=== PATIENT | female | born 1940 ===

== ENCOUNTER → 2018-05-24 | Outpatient (CLI) | payer MEDICARE, OTHER ==
[~2018-05-24] MED LIST: Armour Thyroid15 MG PO; CEPH500 PO; HYDACE5 PO; Naprosyn500 MG PO; SULTRIDS PO; [UNRECOGNIZED DRUG - OTHER]
== END | disposition home or self-care (01) ==
LOC: LAB 12:50 → LAB SHORT 12:50
DX: N39.0 Urinary tract infection, site not specified (principal)
CPT/HCPCS: 87086

== ENCOUNTER 2018-05-26 11:46 | Emergency (ER) | payer MEDICARE, OTHER ==
[~2018-05-26] VITALS: Ht 160 cm; Wt 70.6 kg
[~2018-05-26 11:46] MED LIST changes: -CEPH500 PO; -Naprosyn500 MG PO
[2018-05-26 12:21] LABS: BASOPHILS ABSOLUTE AUTO 0.03 K/mm3 (0.00-0.23); BASOPHILS PERCENT AUTO 0 % (0-2); EOSINOPHILS ABSOLUTE AUTO 0.01 K/mm3 (0.00-0.68); EOSINOPHILS PERCENT AUTO 0 % (0-6); Hematocrit 39.6 % (33.0-51.0); Hemoglobin 12.8 g/dL (11.5-16.0); IMMATURE GRAN ABSOLUTE AUTO 0.03 K/mm3 (0.00-0.10); IMMATURE GRAN PERCENT AUTO 0 % (0-1); LYMPHOCYTES ABSOLUTE AUTO 1.33 K/mm3 (0.84-5.20); LYMPHOCYTES PERCENT AUTO 14 % (21-46); MONOCYTES ABSOLUTE AUTO 1.03 K/mm3 (0.16-1.47); MONOCYTES PERCENT AUTO 11 % (4-13); Mean Corpuscular HGB 31.3 pg (26.0-34.0); Mean Corpuscular HGB Conc 32.3 g/dL (31.5-36.5); Mean Corpuscular Volume 97 fL (80-100); Mean Platelet Volume 9.3 fL (9.1-12.4); NEUTROPHILS ABSOLUTE AUTO 7.32 K/mm3 (1.96-9.15); NEUTROPHILS PERCENT AUTO 75 % (41-73); Platelet Count 256 K/mm3 (150-400); RDW Coefficient Variation 12.6 % (11.7-14.2); RDW Standard Deviation 44.9 fL (35.1-46.3); Red Blood Cell Count 4.09 M/mm3 (3.80-5.20); White Blood Cell Count 9.75 K/mm3 (4.00-11.30)
[2018-05-26 12:35] LABS: International Normalized Ratio 1.09; Prothrombin Time Results 11.2 Sec (9.7-11.5)
[2018-05-26 12:43] LABS: Troponin I <0.015 ng/mL (0.000-0.040)
[2018-05-26 12:45] LABS: Alanine Aminotransfer (ALT/SGP 19 U/L (12-78); Albumin, Blood 3.5 g/dL (3.4-5.0); Albumin/Globulin Ratio 0.7 (0.8-1.8); Alk Phos 100 U/L (50-136); Anion Gap 9 mmol/L (6-16); Aspartate Aminotrans (AST/SGOT 20 U/L (12-37); Bilirubin, Total 0.6 mg/dL (0.1-1.0); Blood Urea Nitrogen 16 mg/dL (8-24); CO2, Blood 27 mmol/L (21-32); Calcium, Blood 8.8 mg/dL (8.5-10.1); Chloride, Blood 102 mmol/L (98-108); Creatinine, Blood 0.59 mg/dL (0.40-1.00); Globulin, Blood 4.9 g/dL (2.2-4.0); Glomerular Filtration Rate >60 (60-); Glucose, Blood 90 mg/dL (70-99); Potassium, Blood 3.7 mmol/L (3.5-5.5); Sodium, Blood 138 mmol/L (136-145); Total Protein, Blood 8.4 g/dL (6.4-8.2)
[2018-05-26 13:31] LABS: Source, Urine Clean Catch
[2018-05-26 13:38] LABS: Bilirubin, Urine Neg (Neg); Blood, Urine 5+ (Neg); Glucose Qualitative, Urine Neg (Neg); Ketones, Urine 4+ (Neg); Leukocyte Esterase, Urine 3+ (Neg); Nitrite, Urine Neg (Neg); Protein, Urine 1+ (Neg); Urobilinogen, Urine NORM (Normal)
[2018-05-26 13:47] LABS: Appearance, Urine Hazy (Clear); Color, Urine Yellow (P-Yellow)
[2018-05-26 13:48] LABS: Squamous Epithelial Cells Few /hpf (Few)
[2018-05-26 13:50] LABS: Bacteria Few /hpf; White Blood Cells, Urine 25-50 /hpf (0-5)
[2018-05-26 13:51] LABS: Transitional Epithelial Cells Few /hpf (0-Rare)
[2018-05-26] MEDS ORDERED: Naprosyn500 MG PO (15:59)
[2018-05-26] MEDS ORDERED: CEPH500 PO (15:59)
== END 2018-05-26 16:20 | disposition home or self-care (01) ==
LOC: ER 11:46
PROVIDERS: Emergency Medicine
DX: M54.6 Pain in thoracic spine (principal); N39.0 Urinary tract infection, site not specified; R07.81 Pleurodynia; Z88.8 Allergy status to other drugs, medicaments and biological substances; Z79.899 Other long term (current) drug therapy
CPT/HCPCS: 36415; 71260; 80053; 81001; 84484; 85025; 85610; 87086; 99284-25; Q9967

== ENCOUNTER → 2018-05-26 | Outpatient (CLI) | payer MEDICARE, OTHER | END | disposition home or self-care (01) | LOC: LAB 15:56 → LAB SHORT 15:56 | DX: R30.0 Dysuria (principal) | CPT/HCPCS: 87086 ==

== ENCOUNTER 2018-07-16 12:24 | Day surgery (SDC) | payer MEDICARE, OTHER ==
[~2018-07-16] VITALS: Ht 160 cm; Wt 71.2 kg
[~2018-07-16 12:24] MED LIST changes: +CEPH500 PO; +Naprosyn500 MG PO
--- NOTE | 2018-07-16 13:08 | NUR ---
History, Chart, Medications and Allergies reviewed before start of procedure. Patient confirms NPO status and agrees with scheduled surgery. Lungs clear T/O to Auscultation. Pre-Op teaching done. Pt verbalizes understanding. Patient reports completing Chlorhexadine shower X2 prior to admission to hospital.
--- NOTE | 2018-07-16 13:42 | NUR ---
CORRECTION OFFICER REFORMATORY REPORT COMPLETED AT BEDSIDE.
--- NOTE | 2018-07-16 13:43 | NUR ---
DISCUSSED PATIENT'S DESIRE TO LEAVE HER UNDERWEAR IN PLACE, WILL REMOVE WHEN SHE GETS UP TO VOID.
--- NOTE | 2018-07-16 13:57 | NUR ---
PATIENT UP TO BATHROOM FOR UNMEASURED VOID, SHE REMOVED HER UNDERWEAR REQUESTED.
--- NOTE | 2018-07-16 15:59 | NUR ---
SHIFT SUMMARY PT A&OX4, VSS, S/P L TKA, AQUACEL CDI, SUSAN WRAP, POLAR HEMANT, TEDS, PAS' ON. PAIN MANAGED WITH 5 MG OXY & TYLENOL. HERNANDO PO, DENIES N&V. AMB W/MIN ASSIST, FWW & GB TO BRP AND NOW IN CHAIR. VOIDING WELL. REPORT GIVEN TO SD JUNG.
[2018-07-17 05:46] LABS: BASOPHILS ABSOLUTE AUTO 0.01 K/mm3 (0.00-0.23); BASOPHILS PERCENT AUTO 0 % (0-2); EOSINOPHILS PERCENT AUTO 0 % (0-6); Hematocrit 33.2 % (33.0-51.0); Hemoglobin 10.7 g/dL (11.5-16.0); IMMATURE GRAN ABSOLUTE AUTO 0.05 K/mm3 (0.00-0.10); IMMATURE GRAN PERCENT AUTO 1 % (0-1); LYMPHOCYTES ABSOLUTE AUTO 0.75 K/mm3 (0.84-5.20); LYMPHOCYTES PERCENT AUTO 7 % (21-46); MONOCYTES ABSOLUTE AUTO 0.83 K/mm3 (0.16-1.47); MONOCYTES PERCENT AUTO 8 % (4-13); Mean Corpuscular HGB 30.6 pg (26.0-34.0); Mean Corpuscular HGB Conc 32.2 g/dL (31.5-36.5); Mean Corpuscular Volume 95 fL (80-100); Mean Platelet Volume 9.1 fL (9.1-12.4); NEUTROPHILS ABSOLUTE AUTO 8.84 K/mm3 (1.96-9.15); NEUTROPHILS PERCENT AUTO 84 % (41-73); Platelet Count 204 K/mm3 (150-400); RDW Coefficient Variation 12.8 % (11.7-14.2); RDW Standard Deviation 43.8 fL (35.1-46.3); White Blood Cell Count 10.48 K/mm3 (4.00-11.30)
[2018-07-17 06:12] LABS: Anion Gap 6 mmol/L (6-16); Blood Urea Nitrogen 14 mg/dL (8-24); Bun/Creatinine Ratio 25.8 (12.0-20.0); CO2, Blood 27 mmol/L (21-32); Calcium, Blood 8.3 mg/dL (8.5-10.1); Chloride, Blood 107 mmol/L (98-108); Creatinine, Blood 0.54 mg/dL (0.40-1.00); Glomerular Filtration Rate >60 (60-); Glucose, Blood 118 mg/dL (70-99); Potassium, Blood 4.3 mmol/L (3.5-5.5); Sodium, Blood 140 mmol/L (136-145)
--- NOTE | 2018-07-17 07:41 | NUR ---
07/17/18 0741 Patricia Scott VERIFICATIONS: EDIT CHART.
--- NOTE | 2018-07-17 07:46 | NUR ---
SHIFT SUMMR[facility] PT A&O X4 T/O SHIFT. POD#1 L TKA; DRESSING CDI; SUSAN WRAP TO L KNEE. CRYOTHERAPY TO L KNEE T/O SHIFT. PPPX4; PT DENIES N/T TO EXT. RA; DENIES SOC, CP AND NAUSEA. UP WITH FWW; PT MOVES WELL. PAIN MANGED PER EMAR. SCD'S AND DELANEY'S TO BLE'S. CALL LIGHT IN REACH; PT DEMONSTRATES USE. REPORT GIVEN TO DAY SHIFT RN.
[2018-07-17] MEDS ORDERED: Percocet 5-3251 EACH PO (14:20)
[2018-07-17] MEDS ORDERED: ASPI325EC PO (14:21)
--- NOTE | 2018-07-17 15:49 | NUR ---
DISCHARGE SUMMARY PT A&OX4, VSS, LEFT FLOOR VIA WC WITH HAND WINDER TO GO HOME WITH , WITH ALL PERSONAL POSSESSIONS INCLUDING DISCHARGE PACKET, 1 NARC SCRIPT AND 1 ASA SCRIPT AND 2 AQUACEL DRESSINGS. DISCHARGE INSTRUCTIONS PROVIDED. PT REP UNDERSTANDING THOSE INSTRUCTIONS INCLUDING DRESSING CHANGES ON FRIDAYS UNTIL 2 WK FU WITH SURGEON, PHYSICAL THERAPY OUTPT, SHOWER OK, NO BATHING/JACUZZI, SHORT FREQ AMBULATION, DO EXERCISES AT HOME, USE FWW WITH ALL AMB, TAKE STOOL SOFTENER W/NARCS. IV DC'D.
== END 2018-07-17 15:24 | disposition home or self-care (01) ==
LOC: ORSCMMR 12:24 → SURS 17:29 → ORSCMMR 07-17 15:24
PROVIDERS: Orthopaedic Surgery
PROC: 0SRD0JA Replacement of Left Knee Joint with Synthetic Substitute, Uncemented, Open Approach (ICD-10-PCS; principal; 2018-07-16 14:15)
DX: M17.12 Unilateral primary osteoarthritis, left knee (principal); Z01.818 Encounter for other preprocedural examination; E03.9 Hypothyroidism, unspecified; Z79.899 Other long term (current) drug therapy
CPT/HCPCS: 36415; 73560-LT; 80048; 85025; 86850; 86900; 86901; 88300; 97110; 97116; 97161; C1776; G8978; G8979; J0171; J0690; J0735; J1100; J1885; J2250; J2795; J3010; J7120

== ENCOUNTER → 2018-08-10 | Outpatient (CLI) | payer MEDICARE, OTHER ==
[~2018-08-10] MED LIST changes: +ASPI325EC PO; +Percocet 5-3251 EACH PO
== END | disposition home or self-care (01) ==
LOC: LAB 16:03 → LAB SHORT 16:03
DX: R30.0 Dysuria (principal)
CPT/HCPCS: 87086

== ENCOUNTER → 2020-05-15 | Outpatient (CLI) | payer MEDICARE, OTHER ==
[2020-05-17 15:08] LABS: HPV 16 Negative (Negative); HPV 18 Negative (Negative); HPV OTHER HR TYPES Negative (Negative)
== END ==
LOC: LAB 16:28 → LAB SHORT 16:28
PROVIDERS: Obstetrics & Gynecology
DX: Z01.419 Encounter for gynecological examination (general) (routine) without abnormal findings (principal)
CPT/HCPCS: 87624; G0123

== ENCOUNTER → 2020-08-10 | Outpatient (CLI) | payer MEDICARE, OTHER | LOC: LAB 15:00 → LAB SHORT 15:00 | DX: L02.215 Cutaneous abscess of perineum (principal) | CPT/HCPCS: 87070; 87075; 87077; 87147; 87186; 87205 ==

== ENCOUNTER → 2020-08-18 | Outpatient (CLI) | payer MEDICARE, OTHER ==
[2020-08-18 13:48] LABS: Source, Urine Clean Catch
[2020-08-18 15:45] LABS: Appearance, Urine Hazy (Clear); Bilirubin, Urine Neg (Neg); Blood, Urine 4+ (Neg); Color, Urine Yellow (P-Yellow); Glucose Qualitative, Urine Neg (Neg); Ketones, Urine 2+ (Neg); Leukocyte Esterase, Urine Neg (Neg); Nitrite, Urine Neg (Neg); Protein, Urine 2+ (Neg); Specific Gravity, Urine 1.025 (1.003-1.022); Urobilinogen, Urine NORM (Normal)
[2020-08-18 15:52] LABS: Bacteria Not Seen /hpf; Squamous Epithelial Cells Rare /hpf (Few); White Blood Cells, Urine Not Seen /hpf (0-5)
[2020-08-18 15:53] LABS: Calcium Oxalate Crystals Many /hpf
== END | disposition home or self-care (01) ==
LOC: LAB 12:10 → LAB SHORT 12:10
PROVIDERS: Obstetrics & Gynecology
DX: R93.89 Abnormal findings on diagnostic imaging of other specified body structures (principal)
CPT/HCPCS: 81001; 88108

== ENCOUNTER 2022-10-17 12:00 | Inpatient (IN) | payer MEDICARE, OTHER ==
[~2022-10-17] VITALS: Ht 162.6 cm; Wt 64.5 kg
[2022-10-17 12:51] LABS: BASOPHILS ABSOLUTE AUTO 0.01 K/mm3 (0.00-0.23); BASOPHILS PERCENT AUTO 0 % (0-2); EOSINOPHILS ABSOLUTE AUTO 0.01 K/mm3 (0.00-0.68); EOSINOPHILS PERCENT AUTO 0 % (0-6); Hematocrit 27.9 % (33.0-51.0); Hemoglobin 9.1 g/dL (11.5-16.0); IMMATURE GRAN ABSOLUTE AUTO 0.07 K/mm3 (0.00-0.10); IMMATURE GRAN PERCENT AUTO 1 % (0-1); LYMPHOCYTES ABSOLUTE AUTO 1.14 K/mm3 (0.84-5.20); LYMPHOCYTES PERCENT AUTO 17 % (21-46); MONOCYTES ABSOLUTE AUTO 0.69 K/mm3 (0.16-1.47); MONOCYTES PERCENT AUTO 11 % (4-13); Mean Corpuscular HGB 31.4 pg (26.0-34.0); Mean Corpuscular HGB Conc 32.6 g/dL (31.5-36.5); Mean Corpuscular Volume 96 fL (80-100); Mean Platelet Volume 9.1 fL (9.1-12.4); NEUTROPHILS ABSOLUTE AUTO 4.66 K/mm3 (1.96-9.15); NEUTROPHILS PERCENT AUTO 71 % (41-73); Platelet Count 302 K/mm3 (150-400); RDW Coefficient Variation 15.1 % (11.7-14.2); RDW Standard Deviation 52.6 fL (35.1-46.3); White Blood Cell Count 6.58 K/mm3 (4.00-11.30)
[2022-10-17 13:08] LABS: Source, Urine Clean Catch
[2022-10-17 13:11] LABS: Albumin, Blood 3.5 g/dL (3.4-5.0); Albumin/Globulin Ratio 0.8 (0.8-1.8); Bilirubin, Total 0.6 mg/dL (0.1-1.0); Bun/Creatinine Ratio 31.1 (12.0-20.0); Calcium, Blood 10.5 mg/dL (8.5-10.1); Creatinine, Blood 0.8 mg/dL (0.40-1.00); Globulin, Blood 4.4 g/dL (2.2-4.0); Potassium, Blood 3.5 mmol/L (3.5-5.5); Total Protein, Blood 7.9 g/dL (6.4-8.2)
[2022-10-17 13:25] LABS: Appearance, Urine Clear (Clear); Bilirubin, Urine Neg (Neg); Blood, Urine 5+ (Neg); Color, Urine Yellow (P-Yellow); Glucose Qualitative, Urine Neg (Neg); Ketones, Urine 2+ (Neg); Leukocyte Esterase, Urine 1+ (Neg); Nitrite, Urine Neg (Neg); Protein, Urine 2+ (Neg); Specific Gravity, Urine 1.015 (1.003-1.022); Urobilinogen, Urine NORM (Normal)
[2022-10-17 13:39] LABS: Bacteria Rare /hpf; Mucus Light (0-Heavy); Red Blood Cells, Urine 25-50 /hpf (0-2); Squamous Epithelial Cells Few /hpf (Few)
[2022-10-17 19:43] LABS: Influenza A, PCR NEGATIVE (NEGATIVE); Influenza B, PCR NEGATIVE (NEGATIVE); Resp Syncytial Virus, PCR NEGATIVE (NEGATIVE); SARS-Cov-2 (COVID-19) PCR, MMC NEGATIVE (NEGATIVE)
[2022-10-17] MEDS ORDERED: MOTRIN IB200 MG PO (19:43)
--- NOTE | 2022-10-18 05:30 | NUR ---
SHIFT SUMMARY 82 YR F ADMITTED ON 10/17/22 FOR ABDOMINAL MASS. NO ACUTE CHANGES THIS SHIFT. PT IS CURRENTLY WAITING FOR A BED AT [facility] FOR SURGICAL CONSULT/BILIARY STENT PLACEMENT. THIS NURSE RECEIVED A CALL FROM A NURSE AT [facility] @ 0530 THIS A.M. TO GET AN UPDATE ON PT. NO BED IS AVAILABLE YET, BUT THEY ARE WORKING ON IT. MEANWHILE, PT HAS NO C/O PAIN OR DISCOMFORT. SHE IS A&O X 4 BUT DID EXHIBIT INTERMITTENT CONFUSION. SHE IS CURRENTLY NPO AND IS RESTING AT THIS TIME.
--- NOTE | 2022-10-18 08:07 | NUR ---
CALLED DR CRUMP- PT HAS C/O DRY MOUTH GLISERINE SWABS ARE NOT HELPING, SHE STATED THEY MADE THE NAUSEA WORSE. PT MEDICATED FOR NAUSEA AT ABOUT 0700 AND IS CURRENTLY LAYING IN BED WITH AN EMESIS BAG. PT HAS A HOME MED ON HER EMAR, SHE STATED SHE HAS THE MED AT HOME IN A BAGGIE THAT SOMEONE GAVE HER, SHE DOES NOT HAVE A LABELED CONTAINER TO BE VERIFIED. HOME MED DC'D PER DR CRUMP, VERY FEW ICE CHIPS OK. WILL REVIEW MEDS AND ADRESS NAUSEA.
--- NOTE | 2022-10-18 15:04 | NUR ---
BED ASSIGNMENT RECIEVED FOR COBRA TRANSFER. SPOUSE PROVIDED ROOM ASSIGNMENT INFORMATION AND ADDRESS SO HE CAN GO UP AND MEET THE PT AT [facility].
--- NOTE | 2022-10-18 15:16 | NUR ---
TRANSFER NOTE- CALLED ERICH BUENO AT [facility] AND GAVE REPORT FOR COBRA TRANSFER. NO TRANSPORT TIME YET. WILL CTM.
== END 2022-10-18 17:56 | disposition short-term general hospital (02) | DRG 438 ==
LOC: ER 12:00 → MEDS 12:01
PROVIDERS: Student in an Organized Health Care Education/Training Program; ADMIT Internal Medicine
DX: K86.89 Other specified diseases of pancreas (principal); G92.8 Other toxic encephalopathy; K83.1 Obstruction of bile duct; N13.30 Unspecified hydronephrosis; Z20.822 Contact with and (suspected) exposure to COVID-19; Z28.21 Immunization not carried out because of patient refusal; D63.0 Anemia in neoplastic disease; E86.0 Dehydration; R79.89 Other specified abnormal findings of blood chemistry; E03.9 Hypothyroidism, unspecified; Z96.651 Presence of right artificial knee joint; Z92.3 Personal history of irradiation; Z85.3 Personal history of malignant neoplasm of breast; Z98.890 Other specified postprocedural states; Z90.11 Acquired absence of right breast and nipple; Z88.4 Allergy status to anesthetic agent; Z91.048 Other nonmedicinal substance allergy status; Z79.82 Long term (current) use of aspirin; Z79.899 Other long term (current) drug therapy
CPT/HCPCS: 0241U; 36415; 71260; 74177; 80053; 81001; 83690; 85025; 93005; 93010; 96361; 96365-59; 96372; 96375; 96375-59; 96376; 99285-25; A9270; G0378; J0696; J1650; J2405; J3010; J7030; Q9967